=== PATIENT | female | born 1955 | race Caucasian/White ===

== ENCOUNTER 2019-03-23 07:41 | Emergency (ER) | payer MEDICAID, MEDICARE, OTHER ==
[~2019-03-23] VITALS: Ht 160 cm; Wt 97.3 kg
--- NOTE | 2019-03-23 08:01 | NUR ---
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 AMBULATORY STEADY GAIT
[2019-03-23] MEDS ORDERED: ONDANSETRON 2MG/ML, 2ML ONE (08:29)
[2019-03-23] MEDS ORDERED: MECLIZINE CHEWABLE 25 MG TAB ONE (08:29)
[2019-03-23] MEDS ORDERED: SODIUM CHLORIDE FLUSH 10ML SYR IVF ONE (08:30)
[2019-03-23] MEDS ORDERED: FAMOTIDINE 20 MG/2 ML IVP ONE (08:30)
[2019-03-23] MEDS ORDERED: MECLIZINE CHEWABLE 25 MG TAB PO ONE (08:30)
[2019-03-23] MEDS ORDERED: ONDANSETRON 2MG/ML, 2ML IVPush ONE (08:30)
[2019-03-23] MEDS ORDERED: FAMOTIDINE 20 MG/2 ML ONE (08:30)
[2019-03-23 09:05] LABS: BASOPHILS # (AUTO) 0.11 x10^3/uL (0-0.1); BASOPHILS % (AUTO) 1 % (0-1); EOSINOPHILS # (AUTO) 0.22 x10^3/uL (0-0.4); EOSINOPHILS % (AUTO) 3 % (1-7); LYMPHOCYTES # (AUTO) 1.42 x10^3/uL (1-3.4); LYMPHOCYTES % (AUTO) 18 % (22-44); MD NO; MEAN CORPUSCULAR HEMOGLOBIN 31.3 pg (27.0-34.8); MEAN CORPUSCULAR HGB CONC 33.6 g/dL (32.4-35.8); MEAN CORPUSCULAR VOLUME 93.2 fL (80-100); MEAN PLATELET VOLUME 9.2 fL (7.4-10.4); MONOCYTES # (AUTO) 0.58 x10^3/uL (0.2-0.8); MONOCYTES % (AUTO) 7 % (2-9); NEUTROPHILS # (AUTO) 5.76 x10^3/uL (1.8-6.8); NEUTROPHILS % (AUTO) 71 % (42-75); PLATELET COUNT 217 x10^3/uL (130-400); RED BLOOD COUNT 4.85 x10^6/uL (3.82-5.3)
[2019-03-23 09:16] LABS: ANION GAP 7 mmol/L (5-15); CHLORIDE 110 mmol/L (98-107)
[2019-03-23 09:24] LABS: ALANINE AMINOTRANSFERASE 23 U/L (12-78); ALKALINE PHOSPHATASE 75 U/L (45-117); BILIRUBIN,TOTAL 0.7 mg/dL (0.2-1.0); CREATININE 0.77 mg/dL (0.55-1.02); TOTAL PROTEIN 6.7 g/dL (6.4-8.2)
--- NOTE | 2019-03-23 09:35 | NUR ---
Pt resting in bed, friend at bedside. States that she is feeling better since medication admin. Given warm blankets. Denies any further needs or concerns at this time.
--- NOTE | 2019-03-23 10:18 | NUR ---
Pt up to bedside commode, with minimal assistance. Urine sample collected and sent, pt denies ability to have a bowel movement at this time, but aware of need for stool sample. Denies any further needs or concerns at this time.
[2019-03-23 10:26] LABS: MICROSCOPIC NOT IND
[2019-03-23 10:34] LABS: CULTURE INDICATED? NO
--- NOTE | 2019-03-23 11:29 | NUR ---
Pt aware of need for stool sample, still unable to provide one at this time. Denies any further needs or concerns at this time.
[2019-03-23 11:32] VITALS: BP 146/86
== END 2019-03-23 11:54 | disposition home or self-care (01) ==
LOC: ED 11:48
DX: A08.4 Viral intestinal infection, unspecified (principal); K21.9 Gastro-esophageal reflux disease without esophagitis
CPT/HCPCS: 36415; 74021; 80053; 81003; 83690; 85025; 96374; 96375; 99284; J2405; J3490

== ENCOUNTER 2019-03-25 19:19 | Emergency (ER) | payer MEDICARE ==
[~2019-03-25] VITALS: Ht 160 cm; Wt 95.0 kg
--- NOTE | 2019-03-25 20:03 | NUR ---
Pt c/o dizziness s/t to L ear painxmultiple months. States tonight cleaning out ears and felt dizzy directly after. -loc, -head trauma. Pt c/o L sided troy s/t to ear pain as well. Neuro appears fully intact. Monitoring applied. Call portia grider. Awaiting md assessment.
--- NOTE | 2019-03-25 20:28 | NUR ---
at bedside for assessment.
--- NOTE | 2019-03-25 21:00 | NUR ---
Pt to ct.
--- NOTE | 2019-03-25 21:30 | NUR ---
All results back. Pt up for recheck.
[2019-03-25 21:39] VITALS: BP 135/65
== END 2019-03-25 21:49 | disposition home or self-care (01) ==
LOC: ED 19:52
DX: H65.05 Acute serous otitis media, recurrent, left ear (principal); F17.200 Nicotine dependence, unspecified, uncomplicated
CPT/HCPCS: 70450; 93005; 99284

== ENCOUNTER 2019-04-06 08:36 | Emergency (ER) | payer MEDICARE ==
[~2019-04-06] VITALS: Ht 160 cm; Wt 94.0 kg
--- NOTE | 2019-04-06 09:03 | NUR ---
PT AMBULATORY TO ROOM 17 W/ C/O NUMBNESS TO L SIDE OF FACE AND LIPS AND C/O TINGLING TO HER CHEST. PT STATES SHE IS NOT SURE IF IT IS A PANIC ATTACK. PT LOST HER SON 1 MONTH AGO AND HAS BEEN HAVING A HARD TIME W/ IT AND TAKING CARE OF HIS BELONGINGS. PT DENIES HI/SI. FRIEND AT BEDSIDE. PT STATES "I JUST FEEL SO ALONE". PT RESTING ON GURNEY. TEARFUL IN ROOM. WARM BLANKET PROVIDED.
[2019-04-06 09:25] VITALS: BP 149/84
--- NOTE | 2019-04-06 09:26 | NUR ---
LESVIA RETANA SUPPORTIVE EMPLOYMENT CASE MANAGER STUDENT AT BEDSIDE.
--- NOTE | 2019-04-06 09:53 | NUR ---
DR. BHAGAT AT BEDSIDE.
== END 2019-04-06 10:14 | disposition home or self-care (01) ==
LOC: ED 10:06
DX: F41.1 Generalized anxiety disorder (principal); F43.21 Adjustment disorder with depressed mood; R53.83 Other fatigue; K21.9 Gastro-esophageal reflux disease without esophagitis; F17.200 Nicotine dependence, unspecified, uncomplicated
CPT/HCPCS: 93005; 99284